=== PATIENT | male | born 1940 | race African-American/Black ===

== ENCOUNTER 2024-02-09 23:10 | Inpatient (IN) | payer MEDICARE, MEDICAID ==
[~2024-02-09] VITALS: Ht 182.9 cm; Wt 74.8 kg
[2024-02-10] VITALS (29 sets, daily range): BP systolic 72–113; BP diastolic 46–81; PULSE 100–130; RESP 15–34; TEMP 35.72508–36.696; O2SAT 96–100
[2024-02-10] MEDS: SODIUM CHLORIDE 0.9% 500 ML IV ONE ×2 (00:02→03:20)
[2024-02-10 01:46] LABS: HEMOGLOBIN. 9.1 g/dL (14.0-18.0); MEAN CORPUSCULAR HEMOGLOBIN 31.1 pg (28.0-32.0); MEAN CORPUSCULAR HGB CONC 31.4 g/dL (31.0-37.0); MEAN CORPUSCULAR VOLUME 99.1 fL (80.0-94.0); RED BLOOD CELL COUNT 2.93 mill/uL (4.7-6.1); RED CELL DISTRIBUTION WIDTH 19.3 % (11.6-14.6); WHITE BLOOD COUNT 11.4 x1000/uL (4.5-11.0)
[2024-02-10 01:54] LABS: INR 1.2; PROTHROMBIN TIME 13.2 sec (9.6-11.0)
[2024-02-10] MEDS: PIPERACILLIN/TAZO 3.375G/50ML 50 ML IV NR (02:00)
[2024-02-10 02:01] LABS: DIFFERENTIAL COMMENT 1
[2024-02-10 02:04] LABS: LACTIC ACID 2.3 mmol/L (0.4-2.0)
[2024-02-10] MEDS: DILTIAZEM HCL 5MG/ML 5ML VIAL IV NR (02:36)
[2024-02-10] MEDS ORDERED: DILTIAZEM HCL 125 MG in DEXT 5% WATER 100 ML IV NR (03:00)
[2024-02-10] MEDS: DILTIAZEM HCL 125 MG in DEXT 5% WATER 100 ML IV ONE (03:39)
[2024-02-10] MEDS: VANCOMYCIN 1G PREMIX 200 ML IV NR (03:42)
[2024-02-10 04:29] LABS: CHLORIDE 97 mEq/L (98-107); POTASSIUM 3.3 mEq/L (3.5-5.1); SODIUM 141 mEq/L (136-145)
[2024-02-10 04:30] LABS: CALCIUM 8.8 mg/dL (8.7-10.4); CARBON DIOXIDE 34 mEq/L (21-32)
[2024-02-10 04:35] LABS: CREATININE 3.6 mg/dL (0.6-1.3); GLUCOSE 81 mg/dL (70-105); UREA NITROGEN BLOOD 33 mg/dL (9-23)
[2024-02-10 04:37] LABS: ALANINE AMINOTRANSFERASE 66 IU/L (10-49); ALBUMIN 3.2 g/dL (3.2-4.8); ASPARTATE AMINOTRANSFERASE 96 IU/L (<34); BILIRUBIN DIRECT 0.4 mg/dL (<=3.0); BILIRUBIN TOTAL 0.9 mg/dL (0.1-1.0); PROTEIN TOTAL 5.9 g/dL (6.0-8.3)
[2024-02-10 04:43] LABS: TROPONIN I HIGH SENSITIVITY 3767 ng/L (3.0-53)
[2024-02-10 04:54] LABS: TROPONIN I HIGH SENSITIVITY 4053 ng/L (3.0-53)
[2024-02-10] MEDS ORDERED: HEPARIN 5000 UNITS/ML VIAL IV ONE (05:00)
[2024-02-10] MEDS ORDERED: HEPARIN 25,000 UNITS PREMIX 250 ML IV ONE (05:00)
[2024-02-10] MEDS ORDERED: HEPARIN 25,000 UNITS PREMIX 250 ML IV SCH (05:45)
[2024-02-10] MEDS ORDERED: HEPARIN BOLUS PRN aPTT 30-44 IV (05:45)
[2024-02-10] MEDS ORDERED: HEPARIN BOLUS PRN aPTT <30 IV (05:45)
[2024-02-10 06:27] LABS: INR 1.2; PARTIAL THROMBOPLASTIN TIME 33.8 sec (23.4-31.0); PROTHROMBIN TIME 13.4 sec (9.6-11.0)
[2024-02-10 06:38] LABS: MEAN PLATELET VOLUME 11.7 fl (7.4-10.4); PLATELET 122 x1000/uL (130-400)
[2024-02-10 06:51] LABS: PLATELET ESTIMATE SLIGHTLY DECREASED
[2024-02-10 06:53] LABS: ANISOCYTOSIS 1+
[2024-02-10] MEDS: HEPARIN 60 UNITS/KG BOLUS IV NR (07:45)
[2024-02-10] MEDS: HEPARIN 25,000 UNITS PREMIX 250 ML IV SCH (08:07)
[2024-02-10] MEDS: INSULIN LISPRO 100 UNITS/ML SUBCUT SCH (10:00)
[2024-02-10] MEDS ORDERED: IPRATROPIUM/ALBUTEROL 0.5-3(2.5)MG/3ML NEB HHN PRN (10:30)
[2024-02-10] MEDS ORDERED: ONDANSETRON HCL 4MG/2ML INJ IV PRN (10:30)
[2024-02-10] MEDS: BLOOD SUGAR DIAGNOSTIC STRIP TEST SCH (10:47)
[2024-02-10] MEDS: DEXTROSE 50% WATER 50ML SYRINGE IV PRN (11:29)
[2024-02-10] MEDS ORDERED: AMIODARONE HCL 50MG/ML 3ML VIAL IV ONE (12:00)
[2024-02-10] MEDS: NOREPINEPHRINE 8MG/250ML PMX 250 ML IV PRN (12:40)
[2024-02-10] MEDS: KCL 20MEQ/100ML PREMIX 100 ML IV SCH (12:45)
[2024-02-10] MEDS: AMIODARONE 150MG/100ML 100 ML IV NR (12:45)
[2024-02-10] MEDS ORDERED: AMIODARONE HCL 900 MG in DEXT 5% WATER 482 ML IV PRN (13:00)
[2024-02-10] MEDS: AMIODARONE HCL 900 MG in DEXT 5% WATER 482 ML IV PRN (13:45)
[2024-02-10] MEDS: VANCOMYCIN 500MG/100ML IV NR (15:48)
[2024-02-10 16:32] LABS: TROPONIN I HIGH SENSITIVITY 3617 ng/L (3.0-53)
[2024-02-10 16:33] LABS: HEPATITIS B SURFACE ANTIGEN NEGATIVE (Negative)
[2024-02-10 16:54] LABS: HEPATITIS A AB IGM NEGATIVE (Negative); HEPATITIS B CORE AB IGM NEGATIVE (Negative)
[2024-02-10 16:55] LABS: HEPATITIS C AB NON REACTIVE (Neg) (Negative)
[2024-02-10] MEDS: PIPERACILLIN/TAZO 3.375G/50ML 50 ML IV SCH (22:24)
[2024-02-10] MEDS: EPOETIN ALFA-EPBX 4,000 UNIT/ML VIAL SUBCUT SCH (22:24)
[2024-02-11] VITALS (50 sets, daily range): BP systolic 80–138; BP diastolic 46–89; PULSE 91–111; RESP 14–58; TEMP 35.5584–36.6696; O2SAT 97–100
[2024-02-11 00:08] LABS: TROPONIN I HIGH SENSITIVITY 3388 ng/L (3.0-53)
[2024-02-11] MEDS: HEPARIN BOLUS PRN aPTT 30-44 IV (00:20)
[2024-02-11 04:41] LABS: CLARITY URINE CLOUDY (CLEAR); COLOR URINE DARK YELLOW (YELLOW); GLUCOSE URINE NEGATIVE (NEGATIVE); KETONES URINE TRACE (NEGATIVE); LEUKOCYTE ESTERASE URINE 1+ (NEGATIVE); NITRITE URINE NEGATIVE (NEGATIVE); OCCULT BLOOD URINE 2+ (NEGATIVE); PH URINE 5.5 (4.5-8.0); PROTEIN URINE 3+ (NEGATIVE); SPECIFIC GRAVITY URINE 1.019 (1.005-1.030)
[2024-02-11 05:08] LABS: WBC URINE TNTC /hpf (0-2)
[2024-02-11 05:09] LABS: BACTERIA URINE 2+; SQUAMOUS EPITHELIAL CELL URINE 1+ /lpf (RARE/1+)
[2024-02-11 06:48] LABS: HEMATOCRIT. 28.4 % (42.0-52.0); HEMOGLOBIN. 9.1 g/dL (14.0-18.0); MEAN CORPUSCULAR HEMOGLOBIN 31.1 pg (28.0-32.0); MEAN CORPUSCULAR HGB CONC 32.1 g/dL (31.0-37.0); MEAN CORPUSCULAR VOLUME 97.2 fL (80.0-94.0); MEAN PLATELET VOLUME 10.6 fl (7.4-10.4); PLATELET 66 x1000/uL (130-400); RED BLOOD CELL COUNT 2.92 mill/uL (4.7-6.1); RED CELL DISTRIBUTION WIDTH 17.4 % (11.6-14.6); WHITE BLOOD COUNT 9.8 x1000/uL (4.5-11.0)
[2024-02-11 06:53] LABS: CARBON DIOXIDE 30 mEq/L (21-32); CHLORIDE 98 mEq/L (98-107); POTASSIUM 3.8 mEq/L (3.5-5.1); SODIUM 138 mEq/L (136-145)
[2024-02-11 06:54] LABS: CALCIUM 8.4 mg/dL (8.7-10.4)
[2024-02-11 06:58] LABS: CREATININE 4.5 mg/dL (0.6-1.3); GLUCOSE 98 mg/dL (70-105)
[2024-02-11 06:59] LABS: UREA NITROGEN BLOOD 44 mg/dL (9-23)
[2024-02-11 07:00] LABS: ALANINE AMINOTRANSFERASE 69 IU/L (10-49); ALBUMIN 2.9 g/dL (3.2-4.8); ASPARTATE AMINOTRANSFERASE 88 IU/L (<34)
[2024-02-11 07:01] LABS: BILIRUBIN DIRECT 0.3 mg/dL (<=3.0); BILIRUBIN TOTAL 0.6 mg/dL (0.1-1.0); PHOSPHORUS 5.4 mg/dL (2.5-4.9); PROTEIN TOTAL 5.5 g/dL (6.0-8.3)
[2024-02-11 07:03] LABS: DIFFERENTIAL COMMENT 1
[2024-02-11 10:41] LABS: ANISOCYTOSIS 1+; PLATELET ESTIMATE DECREASED; TARGET CELLS 1+
[2024-02-11] MEDS ORDERED: METOPROLOL TARTRATE 5MG/5ML VIAL IV PRN (15:45)
[2024-02-11] MEDS ORDERED: CEFEPIME 1GM IN DEXT 5% 50ML IV SCH (17:00)
[2024-02-11] MEDS: VANCOMYCIN 500MG/100ML IV NR (18:42)
[2024-02-11] MEDS: CEFEPIME 1GM/50ML 50 ML IV SCH (18:43)
[2024-02-11 18:52] LABS: BG BASE EXCESS 3.9 mmol/L (-2.0-2.0); BG DEOXYHEMOGLOBIN 4.4 % (0.0-5.0); BG HCO3 ACT 27.4 mmol/L (22.0-26.0); BG METHEMOGLOBIN 0.3 % (0.0-1.5); BG OXYGEN SATURATION 95.5 % (92.0-98.5); BG OXYHEMOGLOBIN 94.3 % (94.0-97.0); BG PCO2 36.5 mmHg (35.0-45.0); BG PH 7.493 (7.350-7.450); BG PO2 80.7 mmHg (75.0-100.0); BG SAMPLE SITE RIGHT BRACHIAL; BG TOTAL HEMOGLOBIN 9.3 g/dL (12.0-18.0); BG VENT MODE ROOM AIR
[2024-02-11 20:46] LABS: AMMONIA < 17 uMol/L (<32)
[2024-02-11] MEDS: ASPIRIN 81MG EC TABLET PO SCH (21:31)
[2024-02-11] MEDS: METOPROLOL TARTRATE 25MG TABLET PO SCH (21:31)
[2024-02-11] MEDS: MELATONIN 3MG TABLET PO SCH (21:31)
[2024-02-12] VITALS (32 sets, daily range): BP systolic 74–128; BP diastolic 52–88; PULSE 72–123; RESP 18–56; TEMP 35.11392–37.05852; O2SAT 98–100
[2024-02-12 06:36] LABS: CHLORIDE 107 mEq/L (98-107); POTASSIUM 4.6 mEq/L (3.5-5.1); SODIUM 145 mEq/L (136-145)
[2024-02-12 06:37] LABS: CALCIUM 8.8 mg/dL (8.7-10.4); CARBON DIOXIDE 30 mEq/L (21-32)
[2024-02-12 06:42] LABS: CREATININE 3.9 mg/dL (0.6-1.3); GLUCOSE 100 mg/dL (70-105); UREA NITROGEN BLOOD 41 mg/dL (9-23)
[2024-02-12 06:44] LABS: PHOSPHORUS 5.7 mg/dL (2.5-4.9)
[2024-02-12 07:17] LABS: HEMATOCRIT. 30.2 % (42.0-52.0); HEMOGLOBIN. 9.7 g/dL (14.0-18.0); MEAN CORPUSCULAR VOLUME 96.9 fL (80.0-94.0); MEAN PLATELET VOLUME 11.8 fl (7.4-10.4); PLATELET 83 x1000/uL (130-400); RED BLOOD CELL COUNT 3.12 mill/uL (4.7-6.1); RED CELL DISTRIBUTION WIDTH 17.5 % (11.6-14.6)
[2024-02-12 08:22] LABS: DIFFERENTIAL COMMENT 1
[2024-02-12] MEDS: MIDODRINE HCL 5MG TABLET PO SCH (13:00)
[2024-02-12] MEDS: DEXTROSE 50% WATER 50ML SYRINGE IV NR (13:00)
[2024-02-12 14:32] LABS: PLATELET ESTIMATE DECREASED
[2024-02-12 14:33] LABS: ANISOCYTOSIS 2+
[2024-02-12] MEDS: CEFAZOLIN 1000MG PREMIX 50 ML IV SCH (17:55)
[2024-02-12] MEDS: ATORVASTATIN CALCIUM 40MG TABLET PO SCH (20:43)
[2024-02-13] VITALS (69 sets, daily range): BP systolic 81–140; BP diastolic 53–115; PULSE 78–125; RESP 0–60; TEMP 36.00288–36.6696; O2SAT 98–100
[2024-02-13 05:18] LABS: CARBON DIOXIDE 30 mEq/L (21-32); CHLORIDE 108 mEq/L (98-107); POTASSIUM 4.6 mEq/L (3.5-5.1); SODIUM 147 mEq/L (136-145)
[2024-02-13 05:19] LABS: CALCIUM 8.7 mg/dL (8.7-10.4)
[2024-02-13 05:23] LABS: CREATININE 4.7 mg/dL (0.6-1.3); GLUCOSE 87 mg/dL (70-105)
[2024-02-13 05:24] LABS: LDL CHOLESTEROL 37 mg/dL (5-100); TRIGLYCERIDE 30 mg/dL (0-150); UREA NITROGEN BLOOD 62 mg/dL (9-23)
[2024-02-13 05:25] LABS: ALANINE AMINOTRANSFERASE 97 IU/L (10-49); ALBUMIN 2.8 g/dL (3.2-4.8); ASPARTATE AMINOTRANSFERASE 102 IU/L (<34); CHOLESTEROL 96 mg/dL (<200)
[2024-02-13 05:26] LABS: BILIRUBIN DIRECT 0.3 mg/dL (<=3.0); BILIRUBIN TOTAL 0.5 mg/dL (0.1-1.0); HDL CHOLESTEROL < 20 mg/dL (>55); PHOSPHORUS 6.7 mg/dL (2.5-4.9); PROTEIN TOTAL 5.7 g/dL (6.0-8.3)
[2024-02-13 05:57] LABS: HEMATOCRIT. 29.8 % (42.0-52.0); HEMOGLOBIN. 9.7 g/dL (14.0-18.0); MEAN CORPUSCULAR HEMOGLOBIN 30.9 pg (28.0-32.0); MEAN CORPUSCULAR HGB CONC 32.5 g/dL (31.0-37.0); MEAN CORPUSCULAR VOLUME 95.2 fL (80.0-94.0); RED BLOOD CELL COUNT 3.13 mill/uL (4.7-6.1); RED CELL DISTRIBUTION WIDTH 17.3 % (11.6-14.6)
[2024-02-13 07:00] LABS: DIFFERENTIAL COMMENT 1; WHITE BLOOD COUNT 8.2 x1000/uL (4.5-11.0)
[2024-02-13] MEDS: DEXT 5%/0.45% NACL 1000ML 1,000 ML IV SCH (09:45)
[2024-02-13 11:01] LABS: ANISOCYTOSIS 1+; TARGET CELLS 2+
[2024-02-13 11:02] LABS: MEAN PLATELET VOLUME 11.4 fl (7.4-10.4); PLATELET ESTIMATE DECREASED
[2024-02-13 11:03] LABS: PLATELET 105 x1000/uL (130-400)
[2024-02-13] MEDS ORDERED: AMIODARONE HCL 150 MG in DEXT 5% WATER 100 ML IV ONE (13:30)
[2024-02-13] MEDS: AMIODARONE 150MG/100ML 100 ML IV NR (13:43)
[2024-02-13] MEDS ORDERED: AMIODARONE HCL 900 MG in DEXT 5% WATER 482 ML IV SCH (13:45)
[2024-02-13] MEDS ORDERED: AMIODARONE 150MG/100ML 100 ML IV ONE (13:45)
[2024-02-13] MEDS: AMIODARONE HCL 900 MG in DEXT 5% WATER 482 ML IV PRN (14:04)
[2024-02-13] MEDS: MIDODRINE HCL 5MG TABLET PO SCH (17:00)
[2024-02-14] VITALS (97 sets, daily range): BP systolic 80–156; BP diastolic 40–107; PULSE 81–110; RESP 11–44; TEMP 33.94716–36.6696; O2SAT 24–100
[2024-02-14] MEDS: NOREPINEPHRINE 32 MG in DEXT 5% WATER 218 ML IV PRN (01:48)
[2024-02-14] MEDS: ACETAMINOPHEN 325MG TABLET PO PRN (02:02)
[2024-02-14 07:08] LABS: HEMATOCRIT. 32.3 % (42.0-52.0); HEMOGLOBIN. 10.1 g/dL (14.0-18.0); MEAN CORPUSCULAR HGB CONC 31.1 g/dL (31.0-37.0); MEAN CORPUSCULAR VOLUME 99.6 fL (80.0-94.0); RED BLOOD CELL COUNT 3.24 mill/uL (4.7-6.1); RED CELL DISTRIBUTION WIDTH 17.9 % (11.6-14.6)
[2024-02-14 07:13] LABS: CHLORIDE 108 mEq/L (98-107); POTASSIUM 5.6 mEq/L (3.5-5.1); SODIUM 144 mEq/L (136-145)
[2024-02-14 07:15] LABS: CALCIUM 8.2 mg/dL (8.7-10.4); CARBON DIOXIDE 24 mEq/L (21-32)
[2024-02-14 07:18] LABS: UREA NITROGEN BLOOD 47 mg/dL (9-23)
[2024-02-14 07:21] LABS: GLUCOSE 73 mg/dL (70-105)
[2024-02-14 07:22] LABS: ALANINE AMINOTRANSFERASE 70 IU/L (10-49); ALBUMIN 2.8 g/dL (3.2-4.8); ASPARTATE AMINOTRANSFERASE 76 IU/L (<34)
[2024-02-14 07:23] LABS: BILIRUBIN DIRECT 0.3 mg/dL (<=3.0); BILIRUBIN TOTAL 0.5 mg/dL (0.1-1.0); PHOSPHORUS 5.4 mg/dL (2.5-4.9); PROTEIN TOTAL 5.8 g/dL (6.0-8.3)
[2024-02-14 07:30] LABS: DIFFERENTIAL COMMENT 1
[2024-02-14 10:46] LABS: BG BASE EXCESS 2.2 mmol/L (-2.0-2.0); BG CARBOXYHEMOGLOBIN 0.6 % (0.5-1.5); BG HCO3 ACT 25.4 mmol/L (22.0-26.0); BG METHEMOGLOBIN 0.1 % (0.0-1.5); BG OXYHEMOGLOBIN 96.3 % (94.0-97.0); BG PCO2 33.5 mmHg (35.0-45.0); BG PH 7.497 (7.350-7.450); BG PO2 93.6 mmHg (75.0-100.0); BG SAMPLE SITE RIGHT RADIAL; BG VENT MODE ROOM AIR
[2024-02-14 11:50] LABS: ANISOCYTOSIS 1+
[2024-02-14 11:55] LABS: TARGET CELLS 1+
[2024-02-14 11:59] LABS: GIANT PLATELETS FEW; PLATELET ESTIMATE DECREASED
[2024-02-14 12:07] LABS: MEAN PLATELET VOLUME 11.4 fl (7.4-10.4); PLATELET 100 x1000/uL (130-400)
[2024-02-14] MEDS: SODIUM ZIRCONIUM CYCLOSILICATE 10GM/PACKET PO NR (17:19)
[2024-02-14] MEDS: AMIODARONE 200MG TABLET PO SCH (21:28)
[2024-02-15] VITALS (59 sets, daily range): BP systolic 91–126; BP diastolic 38–79; PULSE 60–108; RESP 18–41; TEMP 34.33608–37.2252; O2SAT 92–100
[2024-02-15 04:05] LABS: HEMATOCRIT 24.1 % (42.0-52.0); HEMATOCRIT. 24.1 % (42.0-52.0); MEAN CORPUSCULAR HEMOGLOBIN 31.2 pg (28.0-32.0); MEAN CORPUSCULAR HGB CONC 33.1 g/dL (31.0-37.0); MEAN CORPUSCULAR VOLUME 94.3 fL (80.0-94.0); MEAN PLATELET VOLUME 11.1 fl (7.4-10.4); RED BLOOD CELL COUNT 2.56 mill/uL (4.7-6.1); RED CELL DISTRIBUTION WIDTH 17.7 % (11.6-14.6); WHITE BLOOD COUNT 9.5 x1000/uL (4.5-11.0)
[2024-02-15 04:07] LABS: DIFFERENTIAL COMMENT 1
[2024-02-15 04:19] LABS: CARBON DIOXIDE 27 mEq/L (21-32); CHLORIDE 108 mEq/L (98-107); POTASSIUM 4.3 mEq/L (3.5-5.1); SODIUM 144 mEq/L (136-145)
[2024-02-15 04:20] LABS: CALCIUM 7.8 mg/dL (8.7-10.4)
[2024-02-15 04:24] LABS: CREATININE 4.8 mg/dL (0.6-1.3); GLUCOSE 88 mg/dL (70-105)
[2024-02-15 04:25] LABS: UREA NITROGEN BLOOD 76 mg/dL (9-23)
[2024-02-15 04:26] LABS: ALANINE AMINOTRANSFERASE 30 IU/L (10-49); ALBUMIN 2.5 g/dL (3.2-4.8); ASPARTATE AMINOTRANSFERASE 36 IU/L (<34)
[2024-02-15 04:27] LABS: BILIRUBIN TOTAL 0.3 mg/dL (0.1-1.0); PHOSPHORUS 6.2 mg/dL (2.5-4.9); PROTEIN TOTAL 5.2 g/dL (6.0-8.3)
[2024-02-15 08:21] LABS: NUCLEATED RED BLOOD CELLS 2 /100 WBC
[2024-02-15 09:23] LABS: ANISOCYTOSIS 1+; TARGET CELLS 1+
[2024-02-15 09:25] LABS: GIANT PLATELETS FEW; PLATELET ESTIMATE DECREASED
[2024-02-15 09:26] LABS: PLATELET 103 x1000/uL (130-400)
[2024-02-15] MEDS: ASPIRIN 81MG TABLET PO SCH (09:27)
[2024-02-15 10:44] LABS: HEMATOCRIT 23.5 % (42.0-52.0); HEMOGLOBIN 7.7 g/dL (14.0-18.0); MEAN CORPUSCULAR HEMOGLOBIN 31.1 pg (28.0-32.0); MEAN CORPUSCULAR HGB CONC 32.7 g/dL (31.0-37.0); MEAN CORPUSCULAR VOLUME 95.1 fL (80.0-94.0); PLATELET 91 x1000/uL (130-400); RED BLOOD CELL COUNT 2.47 mill/uL (4.7-6.1); RED CELL DISTRIBUTION WIDTH 17.7 % (11.6-14.6); WHITE BLOOD COUNT 8.9 x1000/uL (4.5-11.0)
[2024-02-15] MEDS: SEVELAMER CARBONATE 800 MG TABLET PO SCH (18:23)
[2024-02-16] VITALS (27 sets, daily range): BP systolic 91–124; BP diastolic 33–92; PULSE 49–63; RESP 16–36; TEMP 35.5584–36.89184; O2SAT 97–100
[2024-02-16 05:37] LABS: CHLORIDE 109 mEq/L (98-107); HEMATOCRIT 25.1 % (42.0-52.0); HEMATOCRIT. 25.1 % (42.0-52.0); HEMOGLOBIN 7.7 g/dL (14.0-18.0); HEMOGLOBIN. 7.7 g/dL (14.0-18.0); MEAN CORPUSCULAR HEMOGLOBIN 30.1 pg (28.0-32.0); MEAN CORPUSCULAR HGB CONC 30.9 g/dL (31.0-37.0); MEAN CORPUSCULAR VOLUME 97.6 fL (80.0-94.0); MEAN PLATELET VOLUME 11.5 fl (7.4-10.4); PLATELET 110 x1000/uL (130-400); POTASSIUM 4.7 mEq/L (3.5-5.1); RED BLOOD CELL COUNT 2.57 mill/uL (4.7-6.1); RED CELL DISTRIBUTION WIDTH 18.6 % (11.6-14.6); SODIUM 146 mEq/L (136-145)
[2024-02-16 05:38] LABS: CALCIUM 8.2 mg/dL (8.7-10.4); CARBON DIOXIDE 28 mEq/L (21-32)
[2024-02-16 05:43] LABS: CREATININE 4.7 mg/dL (0.6-1.3); GLUCOSE 100 mg/dL (70-105); UREA NITROGEN BLOOD 70 mg/dL (9-23)
[2024-02-16 05:46] LABS: PHOSPHORUS 5.1 mg/dL (2.5-4.9)
[2024-02-16 06:28] LABS: DIFFERENTIAL COMMENT 1
[2024-02-16] MEDS: APIXABAN 2.5 MG TABLET PO SCH (13:07)
[2024-02-16 14:40] LABS: NUCLEATED RED BLOOD CELLS 1 /100 WBC
[2024-02-16 14:42] LABS: ANISOCYTOSIS 1+; PLATELET ESTIMATE SLIGHTLY DECREASED
[2024-02-17] VITALS (81 sets, daily range): BP systolic 66–159; BP diastolic 32–106; PULSE 59–99; RESP 12–48; TEMP 36.22512–37.33632; O2SAT 82–100
[2024-02-17 05:21] LABS: MEAN CORPUSCULAR HEMOGLOBIN 30.6 pg (28.0-32.0); MEAN CORPUSCULAR VOLUME 95.7 fL (80.0-94.0); RED BLOOD CELL COUNT 2.16 mill/uL (4.7-6.1); RED CELL DISTRIBUTION WIDTH 18.2 % (11.6-14.6)
[2024-02-17 05:22] LABS: POTASSIUM 4.7 mEq/L (3.5-5.1)
[2024-02-17 05:24] LABS: CALCIUM 8.2 mg/dL (8.7-10.4)
[2024-02-17 05:31] LABS: PHOSPHORUS 5.2 mg/dL (2.5-4.9)
[2024-02-17 06:10] LABS: HEMOGLOBIN. 6.6 g/dL (14.0-18.0)
[2024-02-17 06:12] LABS: DIFFERENTIAL COMMENT 1; HEMATOCRIT. 20.7 % (42.0-52.0)
[2024-02-17 06:19] LABS: CREATININE 5.1 mg/dL (0.6-1.3)
[2024-02-17] MEDS ORDERED: ETOMIDATE 2MG/ML 10ML VIAL IV ONE (09:00)
[2024-02-17 10:06] LABS: NUCLEATED RED BLOOD CELLS 2 /100 WBC
[2024-02-17 10:07] LABS: ANISOCYTOSIS 2+; GIANT PLATELETS FEW; TARGET CELLS 1+
[2024-02-17 10:18] LABS: PLATELET 98 x1000/uL (130-400); PLATELET ESTIMATE DECREASED
[2024-02-17] MEDS: INSULIN LISPRO 100 UNITS/ML SUBCUT SCH (12:00)
[2024-02-17] MEDS: BLOOD SUGAR DIAGNOSTIC STRIP TEST SCH (12:21)
[2024-02-17 16:49] LABS: HEMATOCRIT 26.8 % (42.0-52.0); HEMOGLOBIN 8.4 g/dL (14.0-18.0)
[2024-02-17 17:22] LABS: INR 1.1; PROTHROMBIN TIME 12.2 sec (9.6-11.0)
[2024-02-17] MEDS ORDERED: PROPOFOL 10MG/ML 100ML 100 ML IV PRN (19:00)
[2024-02-17 19:02] LABS: BG BASE EXCESS 0.5 mmol/L (-2.0-2.0); BG CARBOXYHEMOGLOBIN 0.1 % (0.5-1.5); BG DEOXYHEMOGLOBIN 1.6 % (0.0-5.0); BG FRACTION INSPIRED OXYGEN 100; BG METHEMOGLOBIN 0.2 % (0.0-1.5); BG OXYGEN SATURATION 98.4 % (92.0-98.5); BG OXYHEMOGLOBIN 98.1 % (94.0-97.0); BG PCO2 52.8 mmHg (35.0-45.0); BG PH 7.327 (7.350-7.450); BG PO2 136.5 mmHg (75.0-100.0); BG SAMPLE SITE LEFT RADIAL; BG TOTAL HEMOGLOBIN 10.3 g/dL (12.0-18.0); BG TOTAL RESPIRATORY RATE 12 b/min; BG VENT MODE VENT - AC
[2024-02-17] MEDS: EPOETIN ALFA-EPBX 10,000 UNIT/ML VIAL SUBCUT SCH (20:32)
[2024-02-18] VITALS (88 sets, daily range): BP systolic 64–134; BP diastolic 16–115; PULSE 54–83; RESP 13–33; TEMP 36.28068–36.61404; O2SAT 92–100
[2024-02-18 05:35] LABS: HEMATOCRIT. 26.1 % (42.0-52.0); HEMOGLOBIN. 8.3 g/dL (14.0-18.0); MEAN CORPUSCULAR HEMOGLOBIN 30.4 pg (28.0-32.0); MEAN CORPUSCULAR HGB CONC 31.9 g/dL (31.0-37.0); MEAN CORPUSCULAR VOLUME 95.1 fL (80.0-94.0); MEAN PLATELET VOLUME 11.4 fl (7.4-10.4); PLATELET 130 x1000/uL (130-400); RED BLOOD CELL COUNT 2.75 mill/uL (4.7-6.1); WHITE BLOOD COUNT 19.8 x1000/uL (4.5-11.0)
[2024-02-18 05:46] LABS: POTASSIUM 4.9 mEq/L (3.5-5.1)
[2024-02-18 05:48] LABS: CALCIUM 8.7 mg/dL (8.7-10.4)
[2024-02-18 05:52] LABS: CREATININE 4.2 mg/dL (0.6-1.3)
[2024-02-18 05:55] LABS: PHOSPHORUS 5.8 mg/dL (2.5-4.9)
[2024-02-18 06:23] LABS: DIFFERENTIAL COMMENT 1
[2024-02-18 08:08] LABS: BG BASE EXCESS 1.8 mmol/L (-2.0-2.0); BG CARBOXYHEMOGLOBIN 0.3 % (0.5-1.5); BG DEOXYHEMOGLOBIN 0.3 % (0.0-5.0); BG FRACTION INSPIRED OXYGEN 100; BG HCO3 ACT 24.9 mmol/L (22.0-26.0); BG OXYGEN SATURATION 99.7 % (92.0-98.5); BG OXYHEMOGLOBIN 99.4 % (94.0-97.0); BG PCO2 33.1 mmHg (35.0-45.0); BG PH 7.495 (7.350-7.450); BG PO2 265.5 mmHg (75.0-100.0); BG SAMPLE SITE RIGHT RADIAL; BG VENT MODE AC/VC
[2024-02-18] MEDS: PANTOPRAZOLE SODIUM 40 MG/VIAL IV SCH (11:42)
[2024-02-18 16:04] LABS: PLATELET ESTIMATE NORMAL
[2024-02-18] MEDS ORDERED: SODIUM CHLORIDE 3% FOR INH 4ML NEB INH PRN (18:30)
[2024-02-18] MEDS: IPRATROPIUM/ALBUTEROL 0.5-3(2.5)MG/3ML NEB HHN SCH (20:47)
[2024-02-18] MEDS: DIPHENHYDRAMINE 50MG/ML VIAL IV PRN (23:53)
[2024-02-19] VITALS (101 sets, daily range): BP systolic 77–166; BP diastolic 26–149; PULSE 53–72; RESP 12–25; TEMP 36.114–36.72516; O2SAT 90–100
[2024-02-19 03:18] LABS: MEAN CORPUSCULAR HEMOGLOBIN 30.2 pg (28.0-32.0); MEAN CORPUSCULAR HGB CONC 31.8 g/dL (31.0-37.0); MEAN PLATELET VOLUME 11.5 fl (7.4-10.4); PLATELET 111 x1000/uL (130-400); RED BLOOD CELL COUNT 2.32 mill/uL (4.7-6.1); WHITE BLOOD COUNT 14.8 x1000/uL (4.5-11.0)
[2024-02-19 03:21] LABS: DIFFERENTIAL COMMENT 1
[2024-02-19 03:24] LABS: POTASSIUM 4.6 mEq/L (3.5-5.1)
[2024-02-19 03:26] LABS: CALCIUM 8.1 mg/dL (8.7-10.4); INR 1.1; PROTHROMBIN TIME 12.6 sec (9.6-11.0)
[2024-02-19 03:37] LABS: CREATININE 5.4 mg/dL (0.6-1.3)
[2024-02-19 04:45] LABS: ANISOCYTOSIS 1+; PLATELET ESTIMATE NORMAL; TARGET CELLS 1+
[2024-02-19 08:54] LABS: BG BASE EXCESS 2.9 mmol/L (-2.0-2.0); BG CARBOXYHEMOGLOBIN 0.1 % (0.5-1.5); BG DEOXYHEMOGLOBIN 0.1 % (0.0-5.0); BG FRACTION INSPIRED OXYGEN 50; BG METHEMOGLOBIN 0.4 % (0.0-1.5); BG OXYGEN SATURATION 99.9 % (92.0-98.5); BG OXYHEMOGLOBIN 99.4 % (94.0-97.0); BG PCO2 39.3 mmHg (35.0-45.0); BG PH 7.455 (7.350-7.450); BG SAMPLE SITE RIGHT RADIAL; BG TOTAL HEMOGLOBIN 7.3 g/dL (12.0-18.0); BG VENT MODE VENT - AC
[2024-02-19 09:32] LABS: HEMATOCRIT 22.2 % (42.0-52.0)
[2024-02-20] VITALS (111 sets, daily range): BP systolic 75–172; BP diastolic 36–83; PULSE 48–92; RESP 12–31; TEMP 36.33624–36.89184; O2SAT 99–100
[2024-02-20 03:26] LABS: POTASSIUM 4.9 mEq/L (3.5-5.1)
[2024-02-20 03:34] LABS: MEAN CORPUSCULAR HEMOGLOBIN 30.4 pg (28.0-32.0); MEAN CORPUSCULAR HGB CONC 31.8 g/dL (31.0-37.0); MEAN CORPUSCULAR VOLUME 95.7 fL (80.0-94.0); MEAN PLATELET VOLUME 12.1 fl (7.4-10.4); PLATELET 121 x1000/uL (130-400); RED BLOOD CELL COUNT 2.18 mill/uL (4.7-6.1); RED CELL DISTRIBUTION WIDTH 18.3 % (11.6-14.6)
[2024-02-20 03:35] LABS: PHOSPHORUS 6.2 mg/dL (2.5-4.9)
[2024-02-20 03:36] LABS: INR 1.1; PROTHROMBIN TIME 11.9 sec (9.6-11.0)
[2024-02-20 03:42] LABS: HEMOGLOBIN. 6.6 g/dL (14.0-18.0)
[2024-02-20 03:43] LABS: CREATININE 6.2 mg/dL (0.6-1.3)
[2024-02-20 03:44] LABS: DIFFERENTIAL COMMENT 1; HEMATOCRIT. 20.8 % (42.0-52.0)
[2024-02-20 05:16] LABS: ANISOCYTOSIS 1+; PLATELET ESTIMATE DECREASED
[2024-02-20 08:50] LABS: BG BASE EXCESS 3.3 mmol/L (-2.0-2.0); BG CARBOXYHEMOGLOBIN 0.4 % (0.5-1.5); BG DEOXYHEMOGLOBIN 0.8 % (0.0-5.0); BG FRACTION INSPIRED OXYGEN 50; BG HCO3 ACT 26.5 mmol/L (22.0-26.0); BG METHEMOGLOBIN 0.2 % (0.0-1.5); BG OXYGEN SATURATION 99.2 % (92.0-98.5); BG OXYHEMOGLOBIN 98.6 % (94.0-97.0); BG PCO2 34.8 mmHg (35.0-45.0); BG PH 7.499 (7.350-7.450); BG PO2 141.3 mmHg (75.0-100.0); BG SAMPLE SITE RIGHT RADIAL; BG TOTAL HEMOGLOBIN 9.5 g/dL (12.0-18.0); BG VENT MODE VENT - AC
[2024-02-20 13:10] LABS: HEMOGLOBIN 8.3 g/dL (14.0-18.0)
[2024-02-20] MEDS: MIDODRINE HCL 5MG TABLET PO SCH (16:42)
[2024-02-21] VITALS (105 sets, daily range): BP systolic 88–128; BP diastolic 31–66; PULSE 49–73; RESP 10–26; TEMP 36.33624–37.00296; O2SAT 95–100
[2024-02-21] MEDS: NOREPINEPHRINE 8MG/250ML PMX 250 ML IV PRN (04:06)
[2024-02-21 07:14] LABS: HEMATOCRIT. 23.4 % (42.0-52.0); HEMOGLOBIN. 7.6 g/dL (14.0-18.0); MEAN CORPUSCULAR HEMOGLOBIN 30.6 pg (28.0-32.0); MEAN CORPUSCULAR HGB CONC 32.4 g/dL (31.0-37.0); MEAN CORPUSCULAR VOLUME 94.5 fL (80.0-94.0); MEAN PLATELET VOLUME 12.5 fl (7.4-10.4); PLATELET 139 x1000/uL (130-400); RED BLOOD CELL COUNT 2.48 mill/uL (4.7-6.1); RED CELL DISTRIBUTION WIDTH 18.3 % (11.6-14.6); WHITE BLOOD COUNT 8.8 x1000/uL (4.5-11.0)
[2024-02-21 07:22] LABS: POTASSIUM 4.7 mEq/L (3.5-5.1)
[2024-02-21 07:23] LABS: CALCIUM 8.7 mg/dL (8.7-10.4); DIFFERENTIAL COMMENT 1
[2024-02-21 07:28] LABS: CREATININE 4.6 mg/dL (0.6-1.3)
[2024-02-21 07:30] LABS: PHOSPHORUS 4.9 mg/dL (2.5-4.9)
[2024-02-21] MEDS ORDERED: SODIUM CHLORIDE 3% FOR INH 4ML NEB INH PRN (09:45)
[2024-02-21 11:19] LABS: ANISOCYTOSIS 2+; NUCLEATED RED BLOOD CELLS 1 /100 WBC; PLATELET ESTIMATE NORMAL
[2024-02-22] VITALS (103 sets, daily range): BP systolic 58–155; BP diastolic 28–90; PULSE 54–86; RESP 8–29; TEMP 36.72516–37.05852; O2SAT 98–100
[2024-02-22 04:17] LABS: HEMATOCRIT. 23.3 % (42.0-52.0); HEMOGLOBIN. 7.7 g/dL (14.0-18.0); MEAN CORPUSCULAR HEMOGLOBIN 31.4 pg (28.0-32.0); MEAN CORPUSCULAR HGB CONC 33.2 g/dL (31.0-37.0); MEAN CORPUSCULAR VOLUME 94.5 fL (80.0-94.0); MEAN PLATELET VOLUME 11.1 fl (7.4-10.4); PLATELET 139 x1000/uL (130-400); RED BLOOD CELL COUNT 2.46 mill/uL (4.7-6.1); RED CELL DISTRIBUTION WIDTH 17.8 % (11.6-14.6); WHITE BLOOD COUNT 10.8 x1000/uL (4.5-11.0)
[2024-02-22 04:19] LABS: DIFFERENTIAL COMMENT 1
[2024-02-22 05:11] LABS: POTASSIUM 4.1 mEq/L (3.5-5.1)
[2024-02-22 05:13] LABS: CALCIUM 8.6 mg/dL (8.7-10.4)
[2024-02-22 05:47] LABS: CREATININE 5.4 mg/dL (0.6-1.3)
[2024-02-22 09:02] LABS: NUCLEATED RED BLOOD CELLS 2 /100 WBC; PLATELET ESTIMATE NORMAL
[2024-02-22 09:04] LABS: ANISOCYTOSIS 1+
[2024-02-23] VITALS (78 sets, daily range): BP systolic 74–185; BP diastolic 18–115; PULSE 55–88; RESP 13–28; TEMP 35.0028–37.05852; O2SAT 66–100
[2024-02-23 05:47] LABS: POTASSIUM 4.5 mEq/L (3.5-5.1)
[2024-02-23 05:49] LABS: CALCIUM 8.6 mg/dL (8.7-10.4)
[2024-02-23 05:56] LABS: PHOSPHORUS 3.7 mg/dL (2.5-4.9)
[2024-02-23 06:26] LABS: BASOPHILS % 0.7 % (0.0-2.0); DIFFERENTIAL COMMENT 0; EOSINOPHILS % 4.2 % (0.0-5.0); HEMATOCRIT. 25.4 % (42.0-52.0); HEMOGLOBIN. 8.2 g/dL (14.0-18.0); MEAN CORPUSCULAR HEMOGLOBIN 30.7 pg (28.0-32.0); MEAN CORPUSCULAR HGB CONC 32.2 g/dL (31.0-37.0); MEAN CORPUSCULAR VOLUME 95.4 fL (80.0-94.0); MEAN PLATELET VOLUME 12.3 fl (7.4-10.4); MONOCYTES % 2.5 % (2.0-8.0); NEUTROPHILS % 83.6 % (40.0-76.0); PLATELET 175 x1000/uL (130-400); RED BLOOD CELL COUNT 2.66 mill/uL (4.7-6.1); RED CELL DISTRIBUTION WIDTH 18.3 % (11.6-14.6); WHITE BLOOD COUNT 10.9 x1000/uL (4.5-11.0)
[2024-02-23 06:40] LABS: CREATININE 6.1 mg/dL (0.6-1.3)
[2024-02-23] MEDS: DEXT 10% WATER 1,000 ML IV SCH (09:36)
[2024-02-24] VITALS (68 sets, daily range): BP systolic 78–137; BP diastolic 34–105; PULSE 45–83; RESP 12–34; TEMP 36.114–36.28068; O2SAT 92–100
[2024-02-24 05:57] LABS: POTASSIUM 4.9 mEq/L (3.5-5.1)
[2024-02-24 05:58] LABS: CALCIUM 8.5 mg/dL (8.7-10.4)
[2024-02-24 06:06] LABS: CREATININE 5.3 mg/dL (0.6-1.3)
[2024-02-24 06:36] LABS: INR 1.1; PROTHROMBIN TIME 12.4 sec (9.6-11.0)
[2024-02-24 07:26] LABS: BASOPHILS % 0.5 % (0.0-2.0); EOSINOPHILS % 4.9 % (0.0-5.0); HEMATOCRIT. 23.8 % (42.0-52.0); HEMOGLOBIN. 7.5 g/dL (14.0-18.0); LYMPHOCYTES % 7.9 % (20.0-50.0); MEAN CORPUSCULAR HEMOGLOBIN 30.7 pg (28.0-32.0); MEAN CORPUSCULAR HGB CONC 31.3 g/dL (31.0-37.0); MEAN CORPUSCULAR VOLUME 98.1 fL (80.0-94.0); MEAN PLATELET VOLUME 12.1 fl (7.4-10.4); MONOCYTES % 2.5 % (2.0-8.0); NEUTROPHILS % 84.2 % (40.0-76.0); PLATELET 193 x1000/uL (130-400); RED BLOOD CELL COUNT 2.43 mill/uL (4.7-6.1); RED CELL DISTRIBUTION WIDTH 19.2 % (11.6-14.6); WHITE BLOOD COUNT 10.9 x1000/uL (4.5-11.0)
[2024-02-24] MEDS ORDERED: PROPOFOL 200MG/20ML VIAL IV ONE (10:12)
[2024-02-24] MEDS: MEROPENEM 1G/100ML 100 ML IV SCH (17:45)
[2024-02-25] VITALS (71 sets, daily range): BP systolic 91–146; BP diastolic 32–59; PULSE 43–77; RESP 12–32; TEMP 32.83596–37.66968; O2SAT 96–100
[2024-02-25 05:37] LABS: BASOPHILS % 0.8 % (0.0-2.0); DIFFERENTIAL COMMENT 0; EOSINOPHILS % 5.3 % (0.0-5.0); HEMATOCRIT. 24.5 % (42.0-52.0); LYMPHOCYTES % 8.9 % (20.0-50.0); MEAN CORPUSCULAR HGB CONC 32.5 g/dL (31.0-37.0); MEAN CORPUSCULAR VOLUME 95.5 fL (80.0-94.0); MEAN PLATELET VOLUME 11.1 fl (7.4-10.4); MONOCYTES % 2.9 % (2.0-8.0); NEUTROPHILS % 82.1 % (40.0-76.0); PLATELET 183 x1000/uL (130-400); RED BLOOD CELL COUNT 2.57 mill/uL (4.7-6.1); RED CELL DISTRIBUTION WIDTH 18.7 % (11.6-14.6); WHITE BLOOD COUNT 8.9 x1000/uL (4.5-11.0)
[2024-02-25 05:46] LABS: POTASSIUM 4.5 mEq/L (3.5-5.1)
[2024-02-25 05:47] LABS: CALCIUM 8.8 mg/dL (8.7-10.4)
[2024-02-25 05:55] LABS: CREATININE 5.9 mg/dL (0.6-1.3)
[2024-02-25] MEDS: METOCLOPRAMIDE HCL 10MG/2ML VIAL IV SCH (06:14)
[2024-02-25] MEDS ORDERED: SODIUM CHLORIDE 3% FOR INH 4ML NEB INH PRN (09:30)
[2024-02-25] MEDS: SODIUM BICARBONATE 4% 2.4MEQ/5ML VIAL IV ONE (11:10)
[2024-02-25] MEDS: LIDOCAINE HCL 1% 10 MG/ML 10ML VIAL ONE ×3 (11:11→20:53)
[2024-02-25 14:10] LABS: BODY FLUID MONOCYTES 1 %
[2024-02-25] MEDS: ACETYLCYSTEINE 200MG/ML 20% VIAL 4ML INH SCH (16:04)
[2024-02-26] VITALS (79 sets, daily range): BP systolic 100–198; BP diastolic 40–159; PULSE 58–108; RESP 10–25; TEMP 36.114–36.50292; O2SAT 95–100
[2024-02-26 06:15] LABS: BASOPHILS % 0.9 % (0.0-2.0); HEMATOCRIT. 22.9 % (42.0-52.0); HEMOGLOBIN. 7.4 g/dL (14.0-18.0); MEAN CORPUSCULAR HEMOGLOBIN 30.5 pg (28.0-32.0); MEAN CORPUSCULAR HGB CONC 32.4 g/dL (31.0-37.0); MEAN CORPUSCULAR VOLUME 94.2 fL (80.0-94.0); MONOCYTES % 2.5 % (2.0-8.0); NEUTROPHILS % 82.6 % (40.0-76.0); PLATELET 202 x1000/uL (130-400); RED BLOOD CELL COUNT 2.43 mill/uL (4.7-6.1); RED CELL DISTRIBUTION WIDTH 18.5 % (11.6-14.6); WHITE BLOOD COUNT 7.9 x1000/uL (4.5-11.0)
[2024-02-26 06:22] LABS: POTASSIUM 4.2 mEq/L (3.5-5.1)
[2024-02-26 06:23] LABS: CALCIUM 8.4 mg/dL (8.7-10.4)
[2024-02-26 06:28] LABS: CREATININE 4.3 mg/dL (0.6-1.3)
[2024-02-26 06:30] LABS: PHOSPHORUS 3.3 mg/dL (2.5-4.9)
[2024-02-26] MEDS: FOLIC ACID/VITAMIN B COMP W-C TABLET PO SCH (08:25)
[2024-02-26] MEDS: IPRATROPIUM/ALBUTEROL 0.5-3(2.5)MG/3ML NEB HHN PRN (08:56)
[2024-02-26 09:05] LABS: BG BASE EXCESS 4.7 mmol/L (-2.0-2.0); BG CARBOXYHEMOGLOBIN 0.5 % (0.5-1.5); BG DEOXYHEMOGLOBIN 1.1 % (0.0-5.0); BG FRACTION INSPIRED OXYGEN 30; BG HCO3 ACT 28.7 mmol/L (22.0-26.0); BG METHEMOGLOBIN 0.3 % (0.0-1.5); BG OXYGEN SATURATION 98.9 % (92.0-98.5); BG OXYHEMOGLOBIN 98.1 % (94.0-97.0); BG PCO2 40.1 mmHg (35.0-45.0); BG PH 7.472 (7.350-7.450); BG SAMPLE SITE RIGHT RADIAL; BG VENT MODE VENT - SIMV
[2024-02-26 10:55] LABS: BG BASE EXCESS 2.5 mmol/L (-2.0-2.0); BG CARBOXYHEMOGLOBIN 0.8 % (0.5-1.5); BG DEOXYHEMOGLOBIN 3.4 % (0.0-5.0); BG FRACTION INSPIRED OXYGEN 30; BG HCO3 ACT 26.5 mmol/L (22.0-26.0); BG OXYGEN SATURATION 96.6 % (92.0-98.5); BG OXYHEMOGLOBIN 95.8 % (94.0-97.0); BG PCO2 38.8 mmHg (35.0-45.0); BG PH 7.453 (7.350-7.450); BG PO2 85.5 mmHg (75.0-100.0); BG SAMPLE SITE RIGHT RADIAL; BG TOTAL HEMOGLOBIN 8.3 g/dL (12.0-18.0); BG VENT MODE VENT - CPAP
[2024-02-26 12:59] LABS: BG BASE EXCESS 1.6 mmol/L (-2.0-2.0); BG CARBOXYHEMOGLOBIN 0.5 % (0.5-1.5); BG DEOXYHEMOGLOBIN 0.4 % (0.0-5.0); BG FRACTION INSPIRED OXYGEN 35; BG HCO3 ACT 25.2 mmol/L (22.0-26.0); BG OXYGEN SATURATION 99.6 % (92.0-98.5); BG OXYHEMOGLOBIN 99.1 % (94.0-97.0); BG PCO2 35.1 mmHg (35.0-45.0); BG PH 7.474 (7.350-7.450); BG PO2 167.8 mmHg (75.0-100.0); BG SAMPLE SITE RIGHT RADIAL; BG TOTAL HEMOGLOBIN 8.3 g/dL (12.0-18.0); BG VENT MODE COOL AEROSOL
[2024-02-26] MEDS: MEROPENEM 500MG/50ML IV SCH (16:19)
[2024-02-27] VITALS (60 sets, daily range): BP systolic 110–165; BP diastolic 37–140; PULSE 63–103; RESP 13–27; TEMP 36.44736–37.55856; O2SAT 82–100
[2024-02-27 06:49] LABS: BASOPHILS % 0.7 % (0.0-2.0); EOSINOPHILS % 4.2 % (0.0-5.0); HEMATOCRIT. 23.5 % (42.0-52.0); HEMOGLOBIN. 7.5 g/dL (14.0-18.0); LYMPHOCYTES % 9.2 % (20.0-50.0); MEAN CORPUSCULAR HEMOGLOBIN 30.8 pg (28.0-32.0); MEAN CORPUSCULAR HGB CONC 32.1 g/dL (31.0-37.0); MEAN CORPUSCULAR VOLUME 95.9 fL (80.0-94.0); MEAN PLATELET VOLUME 11.7 fl (7.4-10.4); NEUTROPHILS % 82.9 % (40.0-76.0); PLATELET 213 x1000/uL (130-400); RED BLOOD CELL COUNT 2.45 mill/uL (4.7-6.1); RED CELL DISTRIBUTION WIDTH 18.5 % (11.6-14.6)
[2024-02-27 07:10] LABS: CALCIUM 8.2 mg/dL (8.7-10.4); CARBON DIOXIDE 24 mEq/L (21-32); CHLORIDE 105 mEq/L (98-107); POTASSIUM 4.2 mEq/L (3.5-5.1); SODIUM 141 mEq/L (136-145)
[2024-02-27 07:16] LABS: GLUCOSE 91 mg/dL (70-105); UREA NITROGEN BLOOD 59 mg/dL (9-23)
[2024-02-27 07:18] LABS: PHOSPHORUS 3.9 mg/dL (2.5-4.9)
[2024-02-27 07:30] LABS: CREATININE 5.7 mg/dL (0.6-1.3)
== END 2024-02-27 19:46 | DRG 870 ==
LOC: ER 23:25 → CVICU 02-10 02:34
PROVIDERS: ADMIT Internal Medicine; ATTEND Internal Medicine
PROC: 5A1D70Z Performance of Urinary Filtration, Intermittent, Less than 6 Hours Per Day (ICD-10-PCS; 2024-02-11)
PROC: 0JP Subcutaneous Tissue and Fascia, Removal (ICD-10-PCS; 2024-02-11)
PROC: 0DB78ZX Excision of Stomach, Pylorus, Via Natural or Artificial Opening Endoscopic, Diagnostic (ICD-10-PCS; 2024-02-13)
PROC: 0DH63UZ Insertion of Feeding Device into Stomach, Percutaneous Approach (ICD-10-PCS; 2024-02-13)
PROC: 5A1D70Z Performance of Urinary Filtration, Intermittent, Less than 6 Hours Per Day (ICD-10-PCS; 2024-02-13)
PROC: 5A1D70Z Performance of Urinary Filtration, Intermittent, Less than 6 Hours Per Day (ICD-10-PCS; 2024-02-15)
PROC: 02HV33Z Insertion of Infusion Device into Superior Vena Cava, Percutaneous Approach (ICD-10-PCS; 2024-02-16)
PROC: B548ZZA Ultrasonography of Superior Vena Cava, Guidance (ICD-10-PCS; 2024-02-16)
PROC: 5A1955Z Respiratory Ventilation, Greater than 96 Consecutive Hours (ICD-10-PCS; principal; 2024-02-17)
PROC: 0BH17EZ Insertion of Endotracheal Airway into Trachea, Via Natural or Artificial Opening (ICD-10-PCS; 2024-02-17)
PROC: 30233N1 Transfusion of Nonautologous Red Blood Cells into Peripheral Vein, Percutaneous Approach (ICD-10-PCS; 2024-02-17)
PROC: 5A1D70Z Performance of Urinary Filtration, Intermittent, Less than 6 Hours Per Day (ICD-10-PCS; 2024-02-17)
PROC: 5A1D70Z Performance of Urinary Filtration, Intermittent, Less than 6 Hours Per Day (ICD-10-PCS; 2024-02-20)
PROC: 5A1D70Z Performance of Urinary Filtration, Intermittent, Less than 6 Hours Per Day (ICD-10-PCS; 2024-02-23)
PROC: 5A1D70Z Performance of Urinary Filtration, Intermittent, Less than 6 Hours Per Day (ICD-10-PCS; 2024-02-25)
PROC: 0H94XZZ Drainage of Neck Skin, External Approach (ICD-10-PCS; 2024-02-25)
PROC: 5A1D70Z Performance of Urinary Filtration, Intermittent, Less than 6 Hours Per Day (ICD-10-PCS; 2024-02-27)
DX: A41.01 Sepsis due to Methicillin susceptible Staphylococcus aureus (principal); N18.6 End stage renal disease; R65.21 Severe sepsis with septic shock; I63.81 Other cerebral infarction due to occlusion or stenosis of small artery; J96.01 Acute respiratory failure with hypoxia; I21.A1 Myocardial infarction type 2; E87.20 Acidosis, unspecified; G93.40 Encephalopathy, unspecified; I13.2 Hypertensive heart and chronic kidney disease with heart failure and with stage 5 chronic kidney disease, or end stage renal disease; N39.0 Urinary tract infection, site not specified; D68.59 Other primary thrombophilia; I50.22 Chronic systolic (congestive) heart failure; T79.7XXA Traumatic subcutaneous emphysema, initial encounter; Z99.11 Dependence on respirator [ventilator] status; L02.11 Cutaneous abscess of neck; D69.6 Thrombocytopenia, unspecified; E11.22 Type 2 diabetes mellitus with diabetic chronic kidney disease; E11.649 Type 2 diabetes mellitus with hypoglycemia without coma; E78.5 Hyperlipidemia, unspecified; E87.6 Hypokalemia; F20.9 Schizophrenia, unspecified; B96.89 Other specified bacterial agents as the cause of diseases classified elsewhere; F99 Mental disorder, not otherwise specified; D53.9 Nutritional anemia, unspecified; K29.70 Gastritis, unspecified, without bleeding; R13.10 Dysphagia, unspecified; I08.1 Rheumatic disorders of both mitral and tricuspid valves; I48.0 Paroxysmal atrial fibrillation; R62.7 Adult failure to thrive; G93.89 Other specified disorders of brain; Z99.2 Dependence on renal dialysis; Z79.01 Long term (current) use of anticoagulants; Z82.49 Family history of ischemic heart disease and other diseases of the circulatory system; Z86.73 Personal history of transient ischemic attack (TIA), and cerebral infarction without residual deficits
CPT/HCPCS: 20611; 31500; 36415; 36556; 36573; 36589; 36600; 70491; 70551; 71045; 71270; 74176; 74178; 76937; 80048; 80053; 80061; 80076; 80202; 81003; 82140; 82375; 82805; 82962; 83036; 83605; 83735; 83880; 84100; 84145; 84443; 84478; 84484; 85014; 85018; 85025; 85027; 85044; 85049; 85384; 86022; 86705; 86709; 86850; 86900; 86920; 87077; 87186; 87340; 88305; 90935; 93005; 93306; 93970; 94003; 94640; 97162; 97166; 99291; A6261; C1725; C1752; J0282; J0690; J0692; J0885; J1200; J1644; J2185; J2470; J2543; J2704; J2765; J3370; J3480; J3490; J7040; J7060; J7608; P9016